=== PATIENT | female | born 1965 | race Caucasian/White ===

== ENCOUNTER 2016-09-03 15:59 | Emergency (ER) | payer OTHER, MEDICAID ==
[~2016-09-03] VITALS: Ht 170.2 cm; Wt 101.0 kg
[2016-09-03] MEDS ORDERED: ASPIRIN 81 MG TABLET CHEW PO ONE (16:30)
[2016-09-03] MEDS ORDERED: SODIUM CHLORIDE FLUSH 10ML SYR IVF ONE (16:30)
[2016-09-03 17:03] LABS: BLOOD UREA NITROGEN 7 mg/dL (7-18)
[2016-09-03 17:08] LABS: ASPARTATE AMINO TRANSFERASE 13 U/L (15-37)
[2016-09-03 17:10] LABS: IS PT STATUS REG ER OR PRE ER? YES
[2016-09-03] MEDS ORDERED: ONDANSETRON ODT 4 MG PO ONE (17:30)
[2016-09-03] MEDS ORDERED: HYDROmorphone 1 MG/ML, 1ML IM ONE (17:30)
[2016-09-03] MEDS ORDERED: ONDANSETRON ODT 4 MG ONE (17:34)
[2016-09-03] MEDS ORDERED: HYDROmorphone 1 MG/ML, 1ML ONE (17:34)
[2016-09-03 17:57] VITALS: BP 152/79
== END 2016-09-03 18:00 | disposition home or self-care (01) ==
LOC: ED 17:54
DX: R07.89 Other chest pain (principal); E78.5 Hyperlipidemia, unspecified
CPT/HCPCS: 36415; 71010; 80053; 84484; 85025; 93005; 96372; 99285; J1170; Q0162

== ENCOUNTER 2017-06-10 13:34 | Emergency (ER) | payer MEDICAID, OTHER ==
[~2017-06-10] VITALS: Ht 170.2 cm; Wt 99.0 kg
[2017-06-10 13:41] VITALS: BP 142/82
[2017-06-10] MEDS ORDERED: ONDANSETRON 4 MG TABLET PO STA (14:13)
[2017-06-10] MEDS ORDERED: CEFAZOLIN 1,000 MG IM ONE (14:30)
[2017-06-10] MEDS ORDERED: CEFAZOLIN 1,000 MG ONE (14:33)
[2017-06-10] MEDS ORDERED: ONDANSETRON ODT 4 MG ONE (14:33)
[2017-06-10] MEDS ORDERED: BACITRACIN ZINC OINT 500U/GM, 0.9 GM ONE (14:43)
== END 2017-06-10 14:43 | disposition home or self-care (01) ==
LOC: ED 14:25
DX: S61.233A Puncture wound without foreign body of left middle finger without damage to nail, initial encounter (principal); L03.012 Cellulitis of left finger; E78.5 Hyperlipidemia, unspecified; Z88.0 Allergy status to penicillin; X58.XXXA Exposure to other specified factors, initial encounter; Y93.89 Activity, other specified; Y99.8 Other external cause status; Y92.89 Other specified places as the place of occurrence of the external cause
CPT/HCPCS: 73140; 96372; 99284; J0690; Q0162